=== PATIENT | female | born 1965 | race Caucasian/White ===

== ENCOUNTER 2018-04-18 15:51 | Emergency (ER) | payer OTHER ==
[~2018-04-18] VITALS: Ht 172.7 cm; Wt 93.0 kg
--- NOTE | 2018-04-18 16:40 | NUR ---
PATIENT BROUGHT SELF IN FOR C/O OF PERSISTENT ABD PAIN/FLANK PAIN. WAS SEEN AT URGENT CARE AND DX WITH KIDNEY INFECTION AND STARTED ON AX. HOWEVER SAID NO LABS WERE TAKEN. PATIENT C/O N/V WITH LAST EPISODE WEDNESDAY. C/O DECAREASED APPETITE. PATIENT A/OX4. GEOFFREY. AT BEDSIDE
--- NOTE | 2018-04-18 16:51 | NUR ---
PATIENT PROVIDED URINE SAMPLE. SENT FOR LAB INFANTRY OPERATIONS SPECIALIST
[2018-04-18] MEDS ORDERED: HYDROCODONE/APAP 5/325MG 1 EACH TABLET ONE (16:56)
[2018-04-18 16:59] LABS: BASOPHILS % (AUTO) 0.6 % (0.0-2.0); EOSINOPHILS % (AUTO) 2.7 % (0.0-6.0); HEMATOCRIT 38 % (33-45); LYMPHOCYTES # (AUTO) 2.1 /CMM (0.8-4.8); LYMPHOCYTES % (AUTO) 29.4 % (20.0-44.0); MEAN CORPUSCULAR HGB CONC 34 g/dl (31.0-36.0); MEAN CORPUSCULAR VOLUME 89 fL (82-100); MONOCYTES # (AUTO) 0.4 /CMM (0.1-1.30); MONOCYTES % (AUTO) 5.9 % (2.0-12.0); NEUTROPHILS # (AUTO) 4.5 /CMM (1.8-8.9); NEUTROPHILS % (AUTO) 61.4 % (43.0-81.0); PLATELET COUNT (AUTO) 222 /CMM (150-450); RDW COEFFICIENT OF VARIATION 13.4 (11.5-15.0); RED BLOOD CELL COUNT(AUTO) 4.31 MIL/uL (4.0-5.2); WHITE BLOOD COUNT (AUTO) 7.2 K/uL (4.3-11.0)
[2018-04-18] MEDS ORDERED: HYDROCODONE/APAP 5/325MG 1 EACH TABLET PO ONE (17:00)
[2018-04-18 17:09] LABS: CALCIUM, SERUM 9.2 mg/dL (8.5-10.1); CREATININE 1.1 mg/dL (0.6-1.3); POTASSIUM 4.1 mmol/L (3.5-5.1)
[2018-04-18 17:15] LABS: ALBUMIN 3.4 g/dL (3.4-5.0); BILIRUBIN,DIRECT 0.1 mg/dL (0.0-0.2); BILIRUBIN,TOTAL 0.5 mg/dL (0.2-1.0); TOTAL PROTEIN, SERUM 6.8 g/dL (6.4-8.2)
[2018-04-18 17:27] LABS: APPEARANCE,URINE Cloudy (CLEAR); BILIRUBIN,URINE Negative (NEGATIVE); BLOOD, URINE Negative Ery/uL (NEGATIVE); COLOR,URINE Dark (YELLOW); KETONES,URINE Trace (NEGATIVE); LEUKOCYTE ESTERASE ,URINE Small (NEGATIVE); NITRITE, URINE Negative (NEGATIVE); PH,URINE 5.5 (5.0-8.0); PROTEIN,URINE 30 mg/dl (NEGATIVE); UGLUCOSE Negative (NEGATIVE)
[2018-04-18] MEDS ORDERED: IV NS 0.9% 1,000 ML BAG IV ONE (17:30)
[2018-04-18 17:47] LABS: RBC,URINE 0-2 /HPF (0-2)
[2018-04-18 17:48] LABS: BACTERIA,URINE Few /HPF (None Seen); SQUAMOUS EPITHELIAL CELL,UR Few /HPF (None Seen); URINE AMORPHOUS URATE Moderate /HPF (None Seen)
[2018-04-18] MEDS ORDERED: KETOROLAC TROMETHAMINE INJ 30 MG/ML VIAL IV ONE (18:00)
[2018-04-18] MEDS ORDERED: KETOROLAC TROMETHAMINE INJ 30 MG/ML VIAL ONE (18:04)
--- NOTE | 2018-04-18 18:17 | NUR ---
20G IV LINE STARTED R AC. FLUIDS INFUSING, MEDICATIONS ADMINISTERED ORDERED. WILL CONTINUE TO MONITOR.
--- NOTE | 2018-04-18 19:32 | NUR ---
RECEIVED REPORT FROM ARNOLD NGO FOR JOSEE
--- NOTE | 2018-04-18 20:01 | NUR ---
Patient discharged to home in stable condition. Written and verbal after care instructions given. Patient verbalizes understanding of instruction.IV removed. Catheter intact and site benign. Pressure and 4x4 applied to site. No bleeding noted. PT AMBULATED WITH STEADY GAIT NOTED.
[2018-04-18 20:02] VITALS: BP 120/79
== END 2018-04-18 20:04 | disposition home or self-care (01) ==
LOC: ER 16:05
DX: N39.0 Urinary tract infection, site not specified (principal); F41.9 Anxiety disorder, unspecified; F32.9 Major depressive disorder, single episode, unspecified; Z98.890 Other specified postprocedural states; R11.2 Nausea with vomiting, unspecified
CPT/HCPCS: 36415; 74176; 80048; 80076; 81001; 83690; 85025; 96361; 96374; 99285; A4606; J1885; J7030; Z7610; 81000-TC

== ENCOUNTER 2018-04-20 15:27 | Inpatient (IN) ==
[~2018-04-20] VITALS: Ht 172.7 cm; Wt 93.4 kg
--- NOTE | 2018-04-20 15:40 | NUR ---
PATIENT C/O LOWER BACK PAIN R/T BILAT RIB CAGE AREA X 2 WEEKS, UNRELIEVED W/ NORCO. ALERT AND ORIENTED X4, BREATHING EVEN AND UNLABORED WITH NO DISTRESS NOTED. SKIN INTACT AND WARM TO TOUCH. AWAITING TO BE SEEN BY .
[2018-04-20] MEDS ORDERED: KETOROLAC TROMETHAMINE INJ 60 MG/2 ML VIAL IM ONE ×2 (16:21→16:30)
[2018-04-20 16:39] LABS: BASOPHILS % (AUTO) 0.4 % (0.0-2.0); HEMATOCRIT 37 % (33-45); HEMOGLOBIN 11.9 g/dL (11.5-14.8); LYMPHOCYTES # (AUTO) 2.5 /CMM (0.8-4.8); LYMPHOCYTES % (AUTO) 35.2 % (20.0-44.0); MEAN CORPUSCULAR HGB CONC 33 g/dl (31.0-36.0); MEAN CORPUSCULAR VOLUME 92 fL (82-100); MONOCYTES # (AUTO) 0.4 /CMM (0.1-1.30); MONOCYTES % (AUTO) 6.2 % (2.0-12.0); NEUTROPHILS # (AUTO) 4.1 /CMM (1.8-8.9); NEUTROPHILS % (AUTO) 56.2 % (43.0-81.0); PLATELET COUNT (AUTO) 223 /CMM (150-450); RDW COEFFICIENT OF VARIATION 14.2 (11.5-15.0); RED BLOOD CELL COUNT(AUTO) 4.01 MIL/uL (4.0-5.2); WHITE BLOOD COUNT (AUTO) 7.2 K/uL (4.3-11.0)
[2018-04-20 16:43] LABS: APPEARANCE,URINE SL CLOUDY (CLEAR); BILIRUBIN,URINE NEGATIVE (NEGATIVE); BLOOD, URINE NEGATIVE Ery/uL (NEGATIVE); COLOR,URINE YELLOW (YELLOW); KETONES,URINE NEGATIVE (NEGATIVE); LEUKOCYTE ESTERASE ,URINE NEGATIVE (NEGATIVE); NITRITE, URINE NEGATIVE (NEGATIVE); PROTEIN,URINE NEGATIVE (NEGATIVE); UGLUCOSE NEGATIVE (NEGATIVE); UROBILINOGEN,URINE 0.2 EU/dL (0.2)
[2018-04-20 16:44] LABS: CALCIUM, SERUM 9.2 mg/dL (8.5-10.1); CREATININE 0.9 mg/dL (0.6-1.3); POTASSIUM 4.2 mmol/L (3.5-5.1)
[2018-04-20 16:50] LABS: ALBUMIN 3.3 g/dL (3.4-5.0); BILIRUBIN,DIRECT 0.1 mg/dL (0.0-0.2); BILIRUBIN,TOTAL 0.3 mg/dL (0.2-1.0); TOTAL PROTEIN, SERUM 6.7 g/dL (6.4-8.2)
--- NOTE | 2018-04-20 18:15 | NUR ---
CALLED NURSING [facility]PER[facility] AND REQUESTED A MED SURG BED FOR THIS PT.
[2018-04-20] MEDS ORDERED: SULF1TAB48 PO (18:25)
[2018-04-20] MEDS ORDERED: HYDR-4384 PO (18:25)
[2018-04-20] MEDS ORDERED: SERT100T PO (18:25)
[2018-04-20] MEDS ORDERED: SUMA100T PO (18:25)
[2018-04-20] MEDS ORDERED: ARIP2TAB3 PO (18:25)
[2018-04-20] MEDS ORDERED: LACT1CAP61 PO (18:25)
[2018-04-20] MEDS ORDERED: OMEP20TA5 PO (18:25)
[2018-04-20] MEDS ORDERED: PROP20TA7 PO (18:25)
[2018-04-20] MEDS ORDERED: BUPR150T5 PO (18:25)
[2018-04-20] MEDS ORDERED: OMEG1CAP PO (18:25)
[2018-04-20] MEDS ORDERED: ALPR1TAB2 PO (18:25)
[2018-04-20] MEDS ORDERED: MULT-1017 PO (18:25)
[2018-04-20] MEDS ORDERED: ONDANSETRON HCL/PF - ER 4 MG/2 ML VIAL IV ONE (18:30)
[2018-04-20] MEDS ORDERED: MORPHINE SULFATE INJ 2 MG/ML DISP.SYRIN IV ONE ×2 (18:30→20:00)
[2018-04-20] MEDS ORDERED: MORPHINE SULFATE INJ 4 MG/ML DISP.SYRIN ONE ×2 (18:33→20:26)
[2018-04-20] MEDS ORDERED: ONDANSETRON HCL/PF 4 MG/2 ML VIAL ONE (18:33)
--- NOTE | 2018-04-20 19:04 | NUR ---
CALLED [facility] FOR PANEL CALL AND HUA SHELBY WAS PAGED
--- NOTE | 2018-04-20 19:24 | NUR ---
RECEIVED REPORT FROM ARNOLD PORTILLO FOR JOSEE. PT RESTING IN BED WITH NO S/S OF DISTRESS NOTED. WILL CONTINUE TO MONITOR PT
[2018-04-20] MEDS ORDERED: PANTOPRAZOLE 40 MG VIAL ONE (19:26)
[2018-04-20] MEDS ORDERED: PANTOPRAZOLE 40 MG VIAL IV ONE (19:30)
--- NOTE | 2018-04-20 19:32 | NUR ---
PT IS ASSIGNED TO MED SURG RM#: [id number], DX: INTRACTABLE BACK PAIN, AND ACCEPTING: HUA SHELBY NP.
--- NOTE | 2018-04-20 19:45 | NUR ---
REPORT GIVEN TO ARNOLD KNOWLES FOR JOSEE
[2018-04-20] MEDS ORDERED: IV NS 0.9% 250 ML IV ONE (20:44)
[2018-04-20] MEDS ORDERED: CT SWABBABLE VALVE TRANS SET 1 EA INFUS.SET MC ONE (20:44)
[2018-04-20] MEDS ORDERED: IOHEXOL-350 100 ML VIAL IV ONE (20:44)
--- NOTE | 2018-04-20 21:33 | NUR ---
GINGER :[phone]
[2018-04-20 22:45] VITALS: BP 116/70
[2018-04-20 23:00] VITALS: BP 116/70
--- NOTE | 2018-04-20 23:00 | NUR ---
RN M/S NOTE; ADMITTED A 53Y/O PLEASANT F. FROM ER IN STABLE CONDITION. A, OX4. AMBULATORY. BREATHING EVENLY. NO SOB . NAD .SKIN WARM AND DRY . PAIN IS TOLERATED WELL . VSS. MEDICAL INFO WAS OBTAINED FROM THE PT. ASKING FOR SOMETHING TO EAT. PT MADE AWARE OF HER NPO DIET. NEEDS ATTENDED , CALL LIGHT WITHIN REACH,. WILL CONT TO MONITOR AND WILL FOLLOW UP WITH MD'S ORDERS,
[2018-04-20] MEDS ORDERED: IV NS 0.9% 1,000 ML IV PRN (23:08)
[2018-04-20] MEDS ORDERED: MORPHINE SULFATE INJ 2 MG/ML DISP.SYRIN IV PRN (23:30)
[2018-04-20] MEDS ORDERED: MAG HYDROX/AL HYDROX/SIMETH 30 ML UDC PO PRN (23:30)
[2018-04-20] MEDS ORDERED: ACETAMINOPHEN 325 MG TABLET PO PRN (23:30)
[2018-04-20] MEDS ORDERED: MAGNESIUM HYDROXIDE 30 ML UDC PO PRN (23:30)
[2018-04-20] MEDS ORDERED: Z GUARD REMEDY 2 OZ OINT TP PRN (23:30)
[2018-04-21] MEDS: ONDANSETRON HCL/PF 4 MG/2 ML VIAL IVP PRN ×2 (00:17→12:40)
--- NOTE | 2018-04-21 00:20 | NUR ---
MORPHINE AND ZOFRAN GIVEN ORDERED PER PT'S REQUEST FOR C/O BACK PAIN .ZOFRAN GIVEN PER PT'S REQUEST FOR NAUSEA ASSOCIATED WITH MORPHINE. WILL CONT TO MONITOR,
--- NOTE | 2018-04-21 06:32 | NUR ---
PT IN BED SLEEPING. BREATHING EVENLY. NO SOB. NO ACUTE EVENT DURING THE NIGHT. PAIN TOLERATED WELL. NPO FOR GI EVAL TODAY. NEEDS ATTENDED . BED LOW LOCKED .CALL LIGHT WITHIN REACH. WILL CONT TO MONITOR AND WILL ENDORSE TO AM SHIFT FOR JOSEE.
--- NOTE | 2018-04-21 07:18 | NUR ---
MS/RN Patient received Patient received from inspector and adjuster golf club head. A/O X4, lying comfortably in bed, does not appear to be in any discomfort. Safety measures in place, call light within reach. Will continue to monitor and ensure safety.
[2018-04-21 07:41] LABS: BASOPHILS % (AUTO) 0.7 % (0.0-2.0); EOSINOPHILS % (AUTO) 2.3 % (0.0-6.0); HEMATOCRIT 35 % (33-45); HEMOGLOBIN 11.6 g/dL (11.5-14.8); LYMPHOCYTES # (AUTO) 1.9 /CMM (0.8-4.8); LYMPHOCYTES % (AUTO) 36.8 % (20.0-44.0); MEAN CORPUSCULAR HGB CONC 33 g/dl (31.0-36.0); MEAN CORPUSCULAR VOLUME 92 fL (82-100); MONOCYTES # (AUTO) 0.3 /CMM (0.1-1.30); NEUTROPHILS # (AUTO) 2.8 /CMM (1.8-8.9); NEUTROPHILS % (AUTO) 54.2 % (43.0-81.0); PLATELET COUNT (AUTO) 177 /CMM (150-450); RDW COEFFICIENT OF VARIATION 14.6 (11.5-15.0); RED BLOOD CELL COUNT(AUTO) 3.83 MIL/uL (4.0-5.2); WHITE BLOOD COUNT (AUTO) 5.1 K/uL (4.3-11.0)
[2018-04-21 07:58] LABS: THYROID STIMULATING HORMONE 2.282 uIU/mL (0.358-3.74)
[2018-04-21 08:00] VITALS: BP 109/72
[2018-04-21 08:03] LABS: CALCIUM, SERUM 8.4 mg/dL (8.5-10.1); CREATININE 0.9 mg/dL (0.6-1.3); PHOSPHORUS 4.4 mg/dL (2.5-4.9)
[2018-04-21] MEDS ORDERED: MORPHINE SULFATE INJ 4 MG/ML DISP.SYRIN IV PRN (08:08)
[2018-04-21] MEDS: PROPRANOLOL HCL 10 MG TABLET PO SCH (09:00)
[2018-04-21] MEDS: PANTOPRAZOLE 40 MG VIAL IV SCH (09:22)
[2018-04-21] MEDS: HYDROCODONE/APAP 5/325MG 1 EACH TABLET PO PRN ×2 (09:22→16:09)
[2018-04-21] MEDS: LACTOBACILLUS RHAMNOSUS GG 1 EACH CAP.SPRINK PO SCH ×2 (09:23→16:09)
[2018-04-21] MEDS: MULTIVIT, IRON, MIN NO. 8, FA 1 TAB PO SCH (09:23)
[2018-04-21] MEDS: SULFAMETH/TRIMETH 800/160 MG 1 UDTAB TABLET PO SCH ×2 (09:23→16:09)
[2018-04-21] MEDS: ALPRAZOLAM 1 MG TABLET PO SCH (09:23)
[2018-04-21] MEDS: buPROPion SR 150 MG TABLET.ER PO SCH (09:23)
[2018-04-21] MEDS: SERTRALINE HCL 50 MG TABLET PO SCH (09:23)
--- NOTE | 2018-04-21 10:00 | NUR ---
MS/RN Labs reviewed Morning labs reviewed, all within normal limits.
--- NOTE | 2018-04-21 13:30 | NUR ---
MS/RN S/B Jairo Gonzalez Seen by Jairo Gonzalez - diet advanced to full liquids, awaiting GI review.
[2018-04-21 16:00] VITALS: BP 104/76
--- NOTE | 2018-04-21 17:48 | NUR ---
MS/RN S/B GI Seen by GI - patient to remain with full liquids. US abdomen ordered to rule out gallstones. Stool to be collected for occult blood. Patient for possible EGD tomorrow, consent forms signed.
--- NOTE | 2018-04-21 18:21 | NUR ---
MS/RN End note Awaiting abdominal ultrasound to rule out gallstones. Tech made aware that patient has been taking full liquids, stated that they will still attempt to carry out study. All other needs addressed, call light within reach, will endorse to film processing shift supervisor.
[2018-04-21 18:49] LABS: IRON, SERUM 57 ug/dl (50-175); TOTAL IRON BINDING CAPACITY 293 ug/dl (250-450)
[2018-04-21 19:03] LABS: FERRITIN 55 ng/mL (8-388)
--- NOTE | 2018-04-21 19:05 | NUR ---
RN NOTES RECEIVED PT AWAKE, ALERT AND ORIENTED X4, DENIES ANY PAIN AND DISCOMFORT AT THIS TIME. IV ACCESS ON LEFT FOREARM PATENT AND INTACT. PLAN OF CARE DISCUSSED WITH THE PT AND VERBALIZED UNDERSTANDING. SAFETY MEASURES IN PLACE WITH CALL LIGHT WITHIN REACH. WILL CONTINUE TO MONITOR PT.
[2018-04-21 20:00] VITALS: BP 118/65
[2018-04-21 22:00] VITALS: BP 118/65
--- NOTE | 2018-04-22 06:16 | NUR ---
RN NOTES PT SLEPT WELL OVERNIGHT, VITAL SIGNS STABLE, AFEBRILE. CURRENT DIET TOLERATED WELL, NO EPISODE OF NAUSEA AND VOMITING. KEPT NPO AFTER MIDNIGHT FOR POSSIBLE EGD TODAY, CONSENT SIGNED. DENIES ANY PAIN AND DISCOMFORT. NO SIGNIFICANT CHANGE IN CONDITION OVERNIGHT. ALL NEEDS ATTENDED. WILL ENDORSE TO MORNING RN FOR CONTINUITY OF CARE.
[2018-04-22] MEDS: HYDROCODONE/APAP 5/325MG 1 EACH TABLET PO PRN (06:24)
[2018-04-22 07:22] LABS: BASOPHILS % (AUTO) 0.6 % (0.0-2.0); EOSINOPHILS % (AUTO) 2.7 % (0.0-6.0); HEMATOCRIT 34 % (33-45); HEMOGLOBIN 11.6 g/dL (11.5-14.8); LYMPHOCYTES # (AUTO) 1.9 /CMM (0.8-4.8); LYMPHOCYTES % (AUTO) 41.6 % (20.0-44.0); MEAN CORPUSCULAR HGB CONC 34 g/dl (31.0-36.0); MEAN CORPUSCULAR VOLUME 91 fL (82-100); MONOCYTES # (AUTO) 0.3 /CMM (0.1-1.30); MONOCYTES % (AUTO) 6.6 % (2.0-12.0); NEUTROPHILS # (AUTO) 2.2 /CMM (1.8-8.9); NEUTROPHILS % (AUTO) 48.5 % (43.0-81.0); PLATELET COUNT (AUTO) 174 /CMM (150-450); RED BLOOD CELL COUNT(AUTO) 3.75 MIL/uL (4.0-5.2); WHITE BLOOD COUNT (AUTO) 4.5 K/uL (4.3-11.0)
[2018-04-22 07:28] LABS: ALBUMIN 2.7 g/dL (3.4-5.0); BILIRUBIN,TOTAL 0.3 mg/dL (0.2-1.0); CALCIUM, SERUM 8.9 mg/dL (8.5-10.1); CREATININE 0.8 mg/dL (0.6-1.3); POTASSIUM 4.1 mmol/L (3.5-5.1); TOTAL PROTEIN, SERUM 5.8 g/dL (6.4-8.2)
--- NOTE | 2018-04-22 07:41 | NUR ---
MS RN OPENING NOTES RECEIVED PATIENT IN STABLE CONDITION. IN NO APPARENT DISTRESS. BEDSIDE RAILS ARE UPX2. BED IS LOCKED AND LOWERED. CALL LIGHT IS WITHIN REACH. IV LINE IS INTACT AND PATENT. WILL CONTINUE TO MONITOR PATIENT.
[2018-04-22 08:00] VITALS: BP 131/86
--- NOTE | 2018-04-22 08:40 | NUR ---
CALLED EMILY MATA SHOP MANAGER IN REGARDS TO PATIENT NOT SCHEDULED FOR EGD PROCEDURE IN OPERATION ROOM. WAS NOT ABLE TO GET A HOLD OF EMILY ZHU. WILL CONTINUE MAKING ATTEMPTS. PATIENT IS REQUESTING TO HAVE HER MORNING XANAX AND PROPRANOLOL DESPITE HER NPO DIAGNOSIS.
[2018-04-22] MEDS: buPROPion SR 150 MG TABLET.ER PO SCH (09:00)
[2018-04-22] MEDS: MULTIVIT, IRON, MIN NO. 8, FA 1 TAB PO SCH (09:00)
[2018-04-22] MEDS: SULFAMETH/TRIMETH 800/160 MG 1 UDTAB TABLET PO SCH (09:00)
[2018-04-22] MEDS: SERTRALINE HCL 50 MG TABLET PO SCH (09:00)
[2018-04-22] MEDS: LACTOBACILLUS RHAMNOSUS GG 1 EACH CAP.SPRINK PO SCH (09:00)
[2018-04-22 09:50] VITALS: BP 131/86
[2018-04-22] MEDS: PANTOPRAZOLE 40 MG VIAL IV SCH (09:50)
[2018-04-22] MEDS: PROPRANOLOL HCL 10 MG TABLET PO SCH (09:50)
[2018-04-22] MEDS: ALPRAZOLAM 1 MG TABLET PO SCH (09:50)
--- NOTE | 2018-04-22 15:11 | NUR ---
DISCHARGED PATIENT IN STABLE CONDITION. IN NO APPARENT DISTRESS. IV LINE WAS REMOVED. ID BAND WAS REMOVED. ALL NEEDS WERE MET. EXITCARE WAS SIGNED AND PROVIDED TO THE PATIENT. PRESCRIPTIONS PROVIDED TO THE PATIENT. BELONGINGS WERE CHECKED AND GIVEN TO THE PATIENT. PATIENT ESCORTED OUT OF THE FACILITY VIA WHEELCHAIR BY MAKENZIE RAYMOND. PATIENT WILL BE DRIVEN HOME SAFELY BY FRIEND.
== END 2018-04-22 15:00 | disposition home or self-care (01) | DRG 241 ==
LOC: ER 15:33 → MED 19:37
PROVIDERS: ADMIT Nurse Practitioner Acute Care; ATTEND Nurse Practitioner Acute Care
DX: K27.9 Peptic ulcer, site unspecified, unspecified as acute or chronic, without hemorrhage or perforation (principal); E88.09 Other disorders of plasma-protein metabolism, not elsewhere classified; E27.9 Disorder of adrenal gland, unspecified; K21.9 Gastro-esophageal reflux disease without esophagitis; G43.909 Migraine, unspecified, not intractable, without status migrainosus; Z90.49 Acquired absence of other specified parts of digestive tract; Z98.84 Bariatric surgery status; Z87.891 Personal history of nicotine dependence; F31.9 Bipolar disorder, unspecified; K63.89 Other specified diseases of intestine; K59.00 Constipation, unspecified; Q43.3 Congenital malformations of intestinal fixation
CPT/HCPCS: 36415; 76700-TC; 80048-TC; 80053-TC; 80061-TC; 80076-TC; 81000-TC; 82728-TC; 83540-TC; 83605-TC; 83690-TC; 83735-TC; 84100-TC; 84443-TC; 84484-TC; 85025-TC; 85652-TC; 86140-TC; 87081-TC; A4606; C9113; G0378; J1885; J2270; J2405; J7030; J7050; Q9967; Z7610